=== PATIENT | female | born 1985 | race Caucasian/White ===

== ENCOUNTER 2017-04-26 11:44 | Day surgery (SDC) | payer OTHER ==
[~2017-04-26] VITALS: Ht 157.5 cm; Wt 56.0 kg
[2017-04-26] VITALS (23 sets, daily range): BP systolic 93–128; BP diastolic 44–76; PULSE 56–100; RESP 11–24; Ht 157.5 cm; Wt 56.0 kg
[~2017-04-26 11:44] MED LIST: CEFAZOLIN 2 GM/50 ML (PMX) 50 ML IVPB SCH; IBUP800T25; PRED-253; SOD CHLORIDE 0.9% 1,000 ML IV SCH
[2017-04-26] MEDS ORDERED: BUPIVACAINE 0.25% (MPF) 30 ML INJ ONE ×2 (14:25→15:37)
[2017-04-26] MEDS ORDERED: LIDOCAINE 2% (SDV) 5 ML INJ ONE (15:50)
[2017-04-26] MEDS ORDERED: MIDAZOLAM 1 MG/ML 2 ML INJ ONE (15:51)
[2017-04-26] MEDS ORDERED: PROPOFOL 20 ML ONE (15:51)
[2017-04-26] MEDS ORDERED: FENTAnyl 50 MCG/ML VIAL ONE (15:51)
[2017-04-26] MEDS ORDERED: DEXAMETHASONE 4 MG/ML 1 ML INJ ONE (15:58)
[2017-04-26] MEDS ORDERED: ONDANSETRON 4 MG INJ ONE (15:58)
[2017-04-26] MEDS ORDERED: METOCLOPRAMIDE 10 MG INJ ONE (15:59)
[2017-04-26] MEDS ORDERED: DIPHENHYDRAMINE 50 MG INJ IV PRN (16:00)
[2017-04-26] MEDS ORDERED: FENTAnyl 50 MCG/ML VIAL IV PRN (16:00)
[2017-04-26] MEDS ORDERED: ONDANSETRON 4 MG INJ IV PRN (16:00)
[2017-04-26] MEDS ORDERED: HYDROmorphONE (0.2 MG/ML) 10ML SYG IV PRN ×3 (16:00)
[2017-04-26] MEDS ORDERED: PROCHLORPERAZINE 10 MG INJ IV PRN (16:00)
[2017-04-26] MEDS ORDERED: MEPERIDINE 25 MG INJ IV PRN (16:00)
[2017-04-26] MEDS ORDERED: OXYCODONE/ACETAMINOPHEN (5/325) TAB PO PRN (16:00)
[2017-04-26] MEDS ORDERED: CEFAZOLIN 1 GM INJ ONE (16:01)
--- NOTE | 2017-04-26 16:23 | OPR ---
Date/Time of Note Date/Time of Note DATE: 04/26/17 TIME: 16:20 Operative Report Procedure Date: Apr 26, 2017 Preoperative Diagnosis left breast tumor Postoperative Diagnosis same Operation Performed 1. excision of left breast tumor 5 cm tumor and 3 cm incision 2. localized adjacent tissue transfer with the use of skin flaps 6 sq cm defect 3. therapeutic injection of subcutaneous marcaine cpt code [id number] Surgeon: Fabienne OLIVER Anesthesia Type: general Estimated Blood Loss: 0 - 10 ml's Specimens left breast tumor Grafts/Implants: none Complications: no Indications This is a 31-year-old female with a left breast tumor. She required surgical excision. Risks alternatives benefits and percent were discussed the patient. Patient expresses understanding and consents to the operation. Procedure Description Patient is taken to the OR and prepped and draped in usual sterile fashion. Surgical timeout is performed. IV antibiotics are given. Curvilinear incision is made with a 15 blade over the left upper inner breast. Dissection cautery was carried onto the breast tumor. The breast tumor is excised with cautery. There is 2 areas of tumor which is approximately 5 cm in size. The tissue defect is irrigated. Hemostasis established. Due to tissue defect localized adjacent tissue transfer with use of skin flaps were performed. Multilayer closure with interrupted 3-0 Vicryl and running 4-0 Monocryl. Therapeutic subcu times Marcaine is injected throughout the incision. Dry dressings were applied. Fabienne OLIVER Apr 26, 2017 16:23
[2017-04-26] MEDS ORDERED: HYDROCODONE/APAP (5/325) TAB PO ONE (16:30)
== END 2017-04-26 18:34 | disposition home or self-care (01) ==
LOC: SDS 11:44
PROVIDERS: ATTEND Surgery
DX: D24.2 Benign neoplasm of left breast (principal)
CPT/HCPCS: 19120; 84703; 88307; J0690; J1100; J1170; J2250; J2405; J2765; J3010; Z7512; Z7610

== ENCOUNTER 2018-05-02 08:48 | Emergency (ER) | END 2018-05-02 11:03 | disposition home or self-care (01) ==

== ENCOUNTER 2018-05-04 06:42 | Emergency (ER) | END 2018-05-04 10:04 | disposition home or self-care (01) ==

== ENCOUNTER 2019-04-27 11:37 | Emergency (ER) | payer OTHER ==
[~2019-04-27] VITALS: Wt 78.9 kg
[~2019-04-27 11:37] MED LIST changes: -CEFAZOLIN 2 GM/50 ML (PMX) 50 ML IVPB SCH; +CEPH-443 PO; +IBUP-1542 PO; -IBUP800T25; -PRED-253; -SOD CHLORIDE 0.9% 1,000 ML IV SCH
[2019-04-27 15:42] VITALS: BP 121/70; PULSE 81; RESP 18
== END 2019-04-27 15:43 | disposition home or self-care (01) ==
LOC: FTE 11:37
DX: N30.01 Acute cystitis with hematuria (principal)
CPT/HCPCS: 81001; 84703; Z7502; 99284